=== PATIENT | female | born 1945 | race Caucasian/White ===

== ENCOUNTER 2017-03-20 03:29 | Inpatient (IN) | payer MEDICARE, MEDICAID ==
[~2017-03-20] VITALS: Ht 170.2 cm; Wt 58.6 kg
[2017-03-20] MEDS ORDERED: ZAFI20TA11 PO (03:40)
[2017-03-20] MEDS ORDERED: POTA8TAB PO (04:02)
[2017-03-20] MEDS ORDERED: ACLI400A2 INH (04:02)
[2017-03-20] MEDS ORDERED: LOSA100T6 PO (04:02)
[2017-03-20] MEDS ORDERED: ALBU1.25 NEB (04:02)
[2017-03-20] MEDS ORDERED: ATOR20TA9 PO (04:02)
[2017-03-20] MEDS ORDERED: FLUT1DIS5 IH (04:02)
[2017-03-20] MEDS ORDERED: WARF5TAB7 PO (04:02)
[2017-03-20] MEDS ORDERED: ALBU8.5H3 INH (04:02)
[2017-03-20] MEDS ORDERED: BISO1TAB PO (04:02)
[2017-03-20] MEDS ORDERED: FURO80TA3 PO (04:02)
[2017-03-20] MEDS ORDERED: LEVO125T PO (04:02)
[2017-03-20] MEDS ORDERED: ALBUTEROL SULFATE 2.5 MG/3 ML NPPB ONE (04:30)
[2017-03-20 04:51] LABS: BLOOD UREA NITROGEN 18 mg/dL (7-18)
[2017-03-20] MEDS ORDERED: MORPHINE SULFATE 4 MG/ML, 1ML ONE (04:56)
[2017-03-20] MEDS ORDERED: SODIUM CHLORIDE 0.9% 1,000 ML IV ONE (05:00)
[2017-03-20] MEDS ORDERED: ONDANSETRON 2MG/ML, 2ML IVPush PRN ×2 (05:00→08:00)
[2017-03-20] MEDS ORDERED: MORPHINE SULFATE 4 MG/ML, 1ML IVPush PRN ×2 (05:00)
[2017-03-20 06:07] VITALS: BP 137/65
[2017-03-20 06:50] VITALS: BP 110/56
[2017-03-20] MEDS ORDERED: HYDROcodone/APAP 5/325 TABLET PO PRN (08:00)
[2017-03-20] MEDS: LEVOTHYROXINE 125 MCG TABLET PO SCH (08:00)
[2017-03-20] MEDS ORDERED: methylPREDNISolone 4mg DOSE PACK PO SCH (08:00)
[2017-03-20] MEDS ORDERED: morphine SULFATE 10 MG/ML, 1ML IVPush PRN (08:00)
[2017-03-20] MEDS ORDERED: ALBUTEROL SULFATE 2.5 MG/3 ML NPPB PRN (08:00)
[2017-03-20] MEDS: GUAIFENESIN 200 MG TABLET PO SCH ×4 (08:00→21:06)
[2017-03-20] MEDS ORDERED: IPRATROPIUM 0.5 MG/2.5 ML INHA NPPB SCH (08:00)
[2017-03-20] MEDS ORDERED: AZITHROMYCIN 500 MG in SODIUM CHLORIDE 0.9% 250 ML IV SCH (08:00)
[2017-03-20] MEDS ORDERED: [UNRECOGNIZED DRUG - REMARK] XX PRN (08:00)
[2017-03-20] MEDS: FAMOTIDINE 20 MG TABLET PO SCH ×2 (09:00→21:05)
[2017-03-20] MEDS: FUROSEMIDE 40 MG/4 ML IV SCH (09:00)
[2017-03-20] MEDS: ZAFIRLUKAST 20 MG TABLET PO SCH ×2 (09:00→21:06)
[2017-03-20] MEDS: LOSARTAN 50MG TABLET PO SCH (09:00)
[2017-03-20] MEDS: HCTZ HOMEMEDPO SCH (09:00)
[2017-03-20] MEDS ORDERED: SENNA/DOCUSATE TABLET PO SCH (09:00)
[2017-03-20] MEDS: FLUTICASONE/VILANTEROL 200-25MCG/INH INH SCH ×2 (09:00→21:05)
[2017-03-20] MEDS: BISOPROLOL FUMARATE HOMEMEDPO SCH (09:00)
[2017-03-20] MEDS ORDERED: WARFARIN 5 MG TABLET PO-COUM SCH (09:00)
[2017-03-20] MEDS: POTASSIUM CHLORIDE 8 MEQ TABLET.ER PO SCH ×2 (09:00→21:06)
[2017-03-20] MEDS: [UNRECOGNIZED DRUG - OTHER] HOMEMEDPO SCH (09:00)
[2017-03-20] MEDS ORDERED: ALBUTEROL/IPRATROPIUM 2.5MG/0.5MG, 3 ML ONE (09:46)
[2017-03-20] MEDS: ALBUTEROL/IPRATROPIUM 2.5MG/0.5MG, 3 ML NPPB SCH ×3 (09:55→19:58)
[2017-03-20] MEDS: CEFTRIAXONE PMX 1GM/50ML 50 ML IV SCH ×2 (10:30→23:31)
[2017-03-20 12:19] VITALS: BP 100/51
[2017-03-20 18:58] VITALS: BP 134/71
[2017-03-20] MEDS ORDERED: ATORVASTATIN 20 MG TABLET PO SCH (21:00)
[2017-03-21 02:03] VITALS: BP 132/61
[2017-03-21 05:07] LABS: BLOOD UREA NITROGEN 18 mg/dL (7-18)
[2017-03-21] MEDS: LEVOTHYROXINE 125 MCG TABLET PO SCH (05:40)
[2017-03-21] MEDS: GUAIFENESIN 200 MG TABLET PO SCH (05:40)
[2017-03-21 06:35] VITALS: BP 140/73
[2017-03-21] MEDS: ALBUTEROL/IPRATROPIUM 2.5MG/0.5MG, 3 ML NPPB SCH ×2 (07:00→10:02)
[2017-03-21] MEDS ORDERED: FAMO20TA7 PO (07:58)
[2017-03-21] MEDS ORDERED: GUAI200T3 PO (07:58)
[2017-03-21] MEDS ORDERED: CEFD300C37 PO (07:58)
[2017-03-21] MEDS ORDERED: METH4TAB2 PO (07:58)
[2017-03-21] MEDS: FLUTICASONE/VILANTEROL 200-25MCG/INH INH SCH (08:35)
[2017-03-21] MEDS: LOSARTAN 50MG TABLET PO SCH (08:37)
[2017-03-21] MEDS: ZAFIRLUKAST 20 MG TABLET PO SCH (08:37)
[2017-03-21] MEDS: FAMOTIDINE 20 MG TABLET PO SCH (08:38)
[2017-03-21] MEDS: FUROSEMIDE 40 MG/4 ML IV SCH (08:41)
[2017-03-21] MEDS: HCTZ HOMEMEDPO SCH (08:41)
[2017-03-21] MEDS: BISOPROLOL FUMARATE HOMEMEDPO SCH (08:41)
[2017-03-21] MEDS: [UNRECOGNIZED DRUG - OTHER] HOMEMEDPO SCH (08:41)
[2017-03-21] MEDS: POTASSIUM CHLORIDE 8 MEQ TABLET.ER PO SCH (08:42)
[2017-03-21 12:19] VITALS: BP 121/70
[2017-03-21] MEDS ORDERED: WARFARIN 1 MG TABLET PO-COUM SCH (18:00)
== END 2017-03-21 14:35 | disposition home or self-care (01) | DRG 291 ==
LOC: ED 05:10 → EDIP 05:15 → 4EST 06:04
PROVIDERS: ADMIT Internal Medicine; ATTEND Internal Medicine
DX: I11.0 Hypertensive heart disease with heart failure (principal); J18.1 Lobar pneumonia, unspecified organism; E43 Unspecified severe protein-calorie malnutrition; J96.21 Acute and chronic respiratory failure with hypoxia; J44.0 Chronic obstructive pulmonary disease with (acute) lower respiratory infection; J44.1 Chronic obstructive pulmonary disease with (acute) exacerbation; I50.23 Acute on chronic systolic (congestive) heart failure; E03.9 Hypothyroidism, unspecified; Z86.711 Personal history of pulmonary embolism; Z87.01 Personal history of pneumonia (recurrent); Z99.81 Dependence on supplemental oxygen; Z88.6 Allergy status to analgesic agent; Z87.891 Personal history of nicotine dependence; Z88.8 Allergy status to other drugs, medicaments and biological substances; Z68.20 Body mass index [BMI] 20.0-20.9, adult
CPT/HCPCS: 36415; 71010; 80048; 82040; 83735; 84443; 85025; 85610; 93005; 93306; 94640; 96374; J0456; J0696; J1940; J7509; J7613; J7620; J7050

== ENCOUNTER → 2019-04-03 | Outpatient (CLI) | payer MEDICARE, MEDICAID ==
[~2019-04-03] MED LIST: ACLI400A2 INH; ALBU1.25 NEB; ALBU8.5H8 INH; ATOR20TA37 PO; BISO1TAB PO; CEFD300C37 PO; FAMO20TA7 PO; FLUT1DIS5 IH; FURO80TA3 PO; GUAI200T3 PO; LEVO125T PO; LOSA100T14 PO; METH4TAB2 PO; POTA8TAB PO; WARF-36 PO; ZAFI20TA11 PO
== END | disposition home or self-care (01) ==
LOC: SUSANVILLE 10:00
PROVIDERS: ATTEND Internal Medicine Cardiovascular Disease
DX: I08.1 Rheumatic disorders of both mitral and tricuspid valves (principal); J44.9 Chronic obstructive pulmonary disease, unspecified; I42.9 Cardiomyopathy, unspecified
CPT/HCPCS: 93306

== ENCOUNTER 2019-09-08 10:26 | Inpatient (IN) | payer MEDICARE, MEDICAID ==
[~2019-09-08] VITALS: Ht 170.2 cm; Wt 65.5 kg
[~2019-09-08 10:26] MED LIST changes: -ACLI400A2 INH; +ACLI400A3 INH; -GUAI200T3 PO; +GUAI200T37 PO
--- NOTE | 2019-09-08 10:31 | NUR ---
THIS IS A 74 YO F BIB [facility] FROM [place] WITH C/O SOB AND ELEVATED TROPONIN. RESPIRATIONS ARE LABORED WITH USE OF INTERCOSTAL MUSCLES. WHEEZING AND RHONCHI PRESENT. PATIENT IS IN NO ACUTE DISTRESS. RECEIVED ALBUTEROL TREATMENTS BY [facility] AND SENDING FACILITY. VITALS STABLE. CALL LIGHT IN REACH. WILL CONTINUE TO MONITOR.
[2019-09-08] MEDS ORDERED: SODIUM CHLORIDE FLUSH 10ML SYR IVF ONE (11:00)
[2019-09-08 11:19] LABS: ALANINE AMINOTRANSFERASE 104 U/L (12-78); ALBUMIN 3.5 g/dL (3.4-5.0); ANION GAP 5 mmol/L (5-15); CALCIUM 8.5 mg/dL (8.5-10.1); CHLORIDE 109 mmol/L (98-107); CREATININE 0.76 mg/dL (0.55-1.02)
[2019-09-08 11:23] LABS: ALKALINE PHOSPHATASE 57 U/L (45-117); BILIRUBIN,TOTAL 0.4 mg/dL (0.2-1.0); TOTAL PROTEIN 6.7 g/dL (6.4-8.2); TROPONIN I 0.023 ng/mL (0.000-0.045)
[2019-09-08 11:35] LABS: INTERNATIONAL NORMALIZED RATIO 2.22 (0.93-1.1); PROTHROMBIN TIME 22.6 Seconds (9.6-11.5)
[2019-09-08 11:48] LABS: MEAN CORPUSCULAR HEMOGLOBIN 30.4 pg (27.0-34.8); MEAN CORPUSCULAR HGB CONC 32.1 g/dL (32.4-35.8); MEAN CORPUSCULAR VOLUME 94.6 fL (80-100); RED BLOOD COUNT 3.61 x10^6/uL (3.82-5.3); RED CELL DISTRIBUTION WIDTH 15.1 % (9.6-15.2)
[2019-09-08 11:49] LABS: MEAN PLATELET VOLUME 8.1 fL (7.4-10.4); PLATELET COUNT 208 x10^3/uL (130-400)
[2019-09-08 11:50] LABS: MD YES
[2019-09-08 11:56] LABS: BAND#(MANUAL) 0.38 x10^3/uL; BANDS%(MANUAL) 3 % (0-7); LYMPH#(MANUAL) 0.13 x10^3/uL (1-3.4); LYMPHS% (MANUAL) 1 % (22-44); MONOS#(MANUAL) 0.26 x10^3/uL (0.3-2.7); MONOS% (MANUAL) 2 % (2-9); SEG#(MANUAL) 12.03 x10^3/uL (1.8-6.8); SEGS% (MANUAL) 94 % (42-75)
--- NOTE | 2019-09-08 11:56 | NUR ---
PATIENT RESTING ON GURNEY WITH SIDE RAILS UP AND CALL LIGHT IN REACH. DENIES FURTHER NEEDS AT THIS TIME.
[2019-09-08 11:57] LABS: <PLATELET ESTIMATE> ADEQUATE; <PLT MORPHOLOGY> NORMAL PLT MORPH; ANISOCYTOSIS 1+; OVALOCYTES 1+
[2019-09-08] MEDS ORDERED: PRED5TAB PO (11:59)
[2019-09-08] MEDS ORDERED: FLUT1BLS INH (12:03)
--- NOTE | 2019-09-08 12:35 | NUR ---
PATIENT ASSISTED TO COMMODE.
[2019-09-08] MEDS ORDERED: OMNIPAQUE 350 MG/ML, 100ML BOTTLE ONE (12:37)
--- NOTE | 2019-09-08 14:15 | NUR ---
MEAL TRAY SERVED TO PATIENT.
--- NOTE | 2019-09-08 15:14 | NUR ---
[facility] TELEPHONE HAND-OFF REPORT GIVEN TO VEE CALDWELL.
[2019-09-08 16:01] VITALS: BP 139/83
[2019-09-08] MEDS ORDERED: hydrALAzine 20 MG/ML, 1ML IVPush PRN (17:00)
[2019-09-08] MEDS ORDERED: ACETAMINOPHEN 325 MG TABLET PO PRN (17:00)
[2019-09-08] MEDS ORDERED: ONDANSETRON 2MG/ML, 2ML IVPush PRN (17:00)
[2019-09-08] MEDS ORDERED: ALBUTEROL SULFATE 2.5 MG/3 ML ONE (17:09)
[2019-09-08 17:31] LABS: HEMOGLOBIN A1C 5.5 % (4.2-6.3)
[2019-09-08] MEDS: FUROSEMIDE 20 MG/2 ML IV SCH (18:00)
[2019-09-08] MEDS: methylPREDNISolone SOD SUCC 125 MG/2 ML IVPush SCH ×2 (18:00→23:54)
[2019-09-08] MEDS: WARFARIN 5 MG TABLET PO-COUM SCH (18:01)
[2019-09-08] MEDS: CEFTRIAXONE PMX 1GM/50ML 50 ML IV SCH (18:46)
[2019-09-08] MEDS: ALBUTEROL SULFATE 2.5 MG/3 ML NPPB SCH ×2 (19:00→23:00)
[2019-09-08] MEDS ORDERED: METOPROLOL 1 MG/ML, 5ML ONE (19:30)
[2019-09-08] MEDS ORDERED: FUROSEMIDE 20 MG/2 ML IV ONE ×3 (19:30→20:00)
[2019-09-08] MEDS: BUDESONIDE 0.5 MG/2 ML INHA INH SCH (19:30)
[2019-09-08] MEDS ORDERED: DILTIAZEM 5 MG/ML, 5ML IVPush ONE (19:30)
[2019-09-08] MEDS: METOPROLOL TARTRATE 25 MG TABLET PO SCH (19:44)
[2019-09-08] MEDS ORDERED: MORPHINE SULFATE 4 MG/ML, 1ML ONE (19:45)
[2019-09-08] MEDS ORDERED: morphine SULFATE 10 MG/ML, 1ML IVPush ONE (20:00)
[2019-09-08] MEDS ORDERED: METOPROLOL 1 MG/ML, 5ML IVPush ONE (20:00)
[2019-09-08] MEDS: ATORVASTATIN 20 MG TABLET PO SCH (20:55)
[2019-09-08] MEDS: ZAFIRLUKAST 20 MG TABLET PO SCH (20:55)
[2019-09-08 21:00] VITALS: BP 175/90
[2019-09-09 00:53] VITALS: BP 132/80
[2019-09-09] MEDS: ALBUTEROL SULFATE 2.5 MG/3 ML NPPB SCH ×6 (02:44→22:28)
[2019-09-09 05:56] LABS: MEAN CORPUSCULAR HEMOGLOBIN 31.1 pg (27.0-34.8); MEAN CORPUSCULAR HGB CONC 32.2 g/dL (32.4-35.8); MEAN CORPUSCULAR VOLUME 96.5 fL (80-100); MEAN PLATELET VOLUME 7.8 fL (7.4-10.4); PLATELET COUNT 206 x10^3/uL (130-400); RED BLOOD COUNT 3.64 x10^6/uL (3.82-5.3); RED CELL DISTRIBUTION WIDTH 15.5 % (9.6-15.2)
[2019-09-09 06:03] LABS: ALANINE AMINOTRANSFERASE 106 U/L (12-78); ALBUMIN 3.3 g/dL (3.4-5.0); ANION GAP 4 mmol/L (5-15); CALCIUM 8.3 mg/dL (8.5-10.1); CHLORIDE 105 mmol/L (98-107); CREATININE 0.61 mg/dL (0.55-1.02)
[2019-09-09 06:13] LABS: ALKALINE PHOSPHATASE 50 U/L (45-117); BILIRUBIN,TOTAL 0.5 mg/dL (0.2-1.0); TOTAL PROTEIN 6.3 g/dL (6.4-8.2)
[2019-09-09] MEDS: methylPREDNISolone SOD SUCC 125 MG/2 ML IVPush SCH ×3 (06:19→17:24)
[2019-09-09 06:20] VITALS: BP 128/70
[2019-09-09] MEDS: LEVOTHYROXINE 125 MCG TABLET PO SCH (06:20)
[2019-09-09] MEDS: METOPROLOL TARTRATE 25 MG TABLET PO SCH ×2 (06:20→17:25)
[2019-09-09] MEDS: BUDESONIDE 0.5 MG/2 ML INHA INH SCH ×2 (07:10→19:24)
[2019-09-09] MEDS ORDERED: FUROSEMIDE 40 MG/4 ML IV SCH (07:30)
[2019-09-09 08:07] LABS: BASOPHILS % (AUTO) 0 % (0-1); EOSINOPHILS # (AUTO) 0.23 x10^3/uL (0-0.4); EOSINOPHILS % (AUTO) 2 % (1-7); LYMPHOCYTES # (AUTO) 0.36 x10^3/uL (1-3.4); LYMPHOCYTES % (AUTO) 3 % (22-44); MD SCAN; MONOCYTES # (AUTO) 0.08 x10^3/uL (0.2-0.8); MONOCYTES % (AUTO) 1 % (2-9); NEUTROPHILS # (AUTO) 13.75 x10^3/uL (1.8-6.8); NEUTROPHILS % (AUTO) 95 % (42-75)
[2019-09-09 08:21] LABS: FIO2 100 %
[2019-09-09] MEDS: FUROSEMIDE 20 MG/2 ML IV SCH ×2 (08:35→17:25)
[2019-09-09] MEDS: POTASSIUM CHLORIDE 20 MEQ TAB.ER.PRT PO SCH (08:35)
[2019-09-09] MEDS: AZITHROMYCIN 500 MG TABLET PO SCH (08:35)
[2019-09-09] MEDS: ZAFIRLUKAST 20 MG TABLET PO SCH ×2 (08:35→20:35)
[2019-09-09] MEDS ORDERED: LISINOPRIL 5 MG TABLET PO SCH (09:00)
[2019-09-09] MEDS ORDERED: LOSARTAN 50MG TABLET PO SCH ×2 (09:00)
[2019-09-09] MEDS ORDERED: SPIRONOLACTONE 25 MG TABLET PO SCH (09:00)
[2019-09-09 13:37] VITALS: BP 96/53
[2019-09-09] MEDS: CEFTRIAXONE PMX 1GM/50ML 50 ML IV SCH (17:24)
[2019-09-09] MEDS: WARFARIN 5 MG TABLET PO-COUM SCH (18:00)
[2019-09-09 18:36] LABS: INTERNATIONAL NORMALIZED RATIO 3.15 (0.93-1.1); PROTHROMBIN TIME 31.6 Seconds (9.6-11.5)
[2019-09-09 20:10] VITALS: BP 105/64
[2019-09-09] MEDS: ATORVASTATIN 20 MG TABLET PO SCH (20:35)
[2019-09-10] MEDS: methylPREDNISolone SOD SUCC 125 MG/2 ML IVPush SCH ×4 (00:35→21:37)
[2019-09-10] MEDS: ALBUTEROL SULFATE 2.5 MG/3 ML NPPB SCH ×6 (02:25→21:49)
[2019-09-10 02:44] VITALS: BP 120/80
[2019-09-10 05:46] VITALS: BP 123/72
[2019-09-10] MEDS: METOPROLOL TARTRATE 25 MG TABLET PO SCH ×2 (05:49→17:19)
[2019-09-10] MEDS: LEVOTHYROXINE 125 MCG TABLET PO SCH (05:49)
[2019-09-10 06:52] LABS: BASOPHILS % (AUTO) 0 % (0-1); EOSINOPHILS % (AUTO) 0 % (1-7); LYMPHOCYTES # (AUTO) 0.41 x10^3/uL (1-3.4); LYMPHOCYTES % (AUTO) 3 % (22-44); MD NO; MEAN CORPUSCULAR HEMOGLOBIN 31.1 pg (27.0-34.8); MEAN CORPUSCULAR HGB CONC 32.3 g/dL (32.4-35.8); MEAN CORPUSCULAR VOLUME 96.2 fL (80-100); MEAN PLATELET VOLUME 7.9 fL (7.4-10.4); MONOCYTES # (AUTO) 0.56 x10^3/uL (0.2-0.8); MONOCYTES % (AUTO) 4 % (2-9); NEUTROPHILS # (AUTO) 15.14 x10^3/uL (1.8-6.8); NEUTROPHILS % (AUTO) 94 % (42-75); PLATELET COUNT 188 x10^3/uL (130-400); RED BLOOD COUNT 3.48 x10^6/uL (3.82-5.3); RED CELL DISTRIBUTION WIDTH 15.3 % (9.6-15.2)
[2019-09-10 06:56] LABS: INTERNATIONAL NORMALIZED RATIO 4.52 (0.93-1.1); PROTHROMBIN TIME 44.8 Seconds (9.6-11.5)
[2019-09-10 07:03] LABS: CHLORIDE 102 mmol/L (98-107)
[2019-09-10 07:13] LABS: ALANINE AMINOTRANSFERASE 76 U/L (12-78); ALBUMIN 3.2 g/dL (3.4-5.0); ALKALINE PHOSPHATASE 45 U/L (45-117); ANION GAP 9 mmol/L (5-15); BILIRUBIN,TOTAL 0.5 mg/dL (0.2-1.0); CALCIUM 8.3 mg/dL (8.5-10.1); CREATININE 0.67 mg/dL (0.55-1.02)
[2019-09-10] MEDS: BUDESONIDE 0.5 MG/2 ML INHA INH SCH ×2 (07:15→18:51)
[2019-09-10 08:19] VITALS: BP 109/61
[2019-09-10] MEDS: POTASSIUM CHLORIDE 20 MEQ TAB.ER.PRT PO SCH (08:50)
[2019-09-10] MEDS: AZITHROMYCIN 500 MG TABLET PO SCH (08:50)
[2019-09-10] MEDS: ZAFIRLUKAST 20 MG TABLET PO SCH ×2 (08:50→21:37)
[2019-09-10] MEDS: FUROSEMIDE 20 MG/2 ML IV SCH ×2 (08:50→17:18)
[2019-09-10 15:40] VITALS: BP 138/75
[2019-09-10] MEDS: CEFTRIAXONE PMX 1GM/50ML 50 ML IV SCH (17:19)
[2019-09-10] MEDS ORDERED: WARFARIN 1 MG TABLET PO-COUM ONE (18:00)
[2019-09-10 21:25] VITALS: BP 108/72
[2019-09-10] MEDS: ATORVASTATIN 20 MG TABLET PO SCH (21:38)
[2019-09-11 01:59] VITALS: BP 135/55
[2019-09-11] MEDS: methylPREDNISolone SOD SUCC 125 MG/2 ML IVPush SCH ×3 (02:43→15:49)
[2019-09-11] MEDS: ALBUTEROL SULFATE 2.5 MG/3 ML NPPB SCH ×4 (03:15→10:59)
[2019-09-11] MEDS: METOPROLOL TARTRATE 25 MG TABLET PO SCH ×2 (05:32→17:52)
[2019-09-11] MEDS: LEVOTHYROXINE 125 MCG TABLET PO SCH (05:32)
[2019-09-11] MEDS: BUDESONIDE 0.5 MG/2 ML INHA INH SCH (06:19)
[2019-09-11] MEDS: FUROSEMIDE 20 MG/2 ML IV SCH ×2 (07:30→17:00)
[2019-09-11 07:37] VITALS: BP 138/83
[2019-09-11] MEDS: AZITHROMYCIN 500 MG TABLET PO SCH (08:17)
[2019-09-11] MEDS: ZAFIRLUKAST 20 MG TABLET PO SCH (08:17)
[2019-09-11] MEDS: POTASSIUM CHLORIDE 20 MEQ TAB.ER.PRT PO SCH (08:17)
[2019-09-11 08:20] LABS: MEAN CORPUSCULAR HEMOGLOBIN 30.2 pg (27.0-34.8); MEAN CORPUSCULAR HGB CONC 31.7 g/dL (32.4-35.8); MEAN CORPUSCULAR VOLUME 95.2 fL (80-100); MEAN PLATELET VOLUME 7.6 fL (7.4-10.4); PLATELET COUNT 191 x10^3/uL (130-400); RED BLOOD COUNT 3.48 x10^6/uL (3.82-5.3); RED CELL DISTRIBUTION WIDTH 15.4 % (9.6-15.2)
[2019-09-11 08:25] LABS: INTERNATIONAL NORMALIZED RATIO 2.95 (0.93-1.1); PROTHROMBIN TIME 29.7 Seconds (9.6-11.5)
[2019-09-11 08:30] LABS: ALANINE AMINOTRANSFERASE 67 U/L (12-78); ALBUMIN 3.3 g/dL (3.4-5.0); ANION GAP 5 mmol/L (5-15); CALCIUM 8.4 mg/dL (8.5-10.1); CHLORIDE 100 mmol/L (98-107); CREATININE 0.78 mg/dL (0.55-1.02)
[2019-09-11 08:34] LABS: ALKALINE PHOSPHATASE 42 U/L (45-117); BILIRUBIN,TOTAL 0.6 mg/dL (0.2-1.0); TOTAL PROTEIN 6.2 g/dL (6.4-8.2)
[2019-09-11 08:43] LABS: BASOPHILS % (AUTO) 0 % (0-1); EOSINOPHILS % (AUTO) 1 % (1-7); LYMPHOCYTES # (AUTO) 0.24 x10^3/uL (1-3.4); LYMPHOCYTES % (AUTO) 2 % (22-44); MD SCAN; MONOCYTES # (AUTO) 0.43 x10^3/uL (0.2-0.8); MONOCYTES % (AUTO) 3 % (2-9); NEUTROPHILS # (AUTO) 13.86 x10^3/uL (1.8-6.8); NEUTROPHILS % (AUTO) 95 % (42-75)
[2019-09-11 12:05] VITALS: BP 122/91
[2019-09-11] MEDS ORDERED: CEFD300C37 PO (16:54)
[2019-09-11] MEDS ORDERED: METO25TA35 PO (16:54)
[2019-09-11] MEDS ORDERED: AZIT500T10 PO (16:54)
[2019-09-11] MEDS: CEFTRIAXONE PMX 1GM/50ML 50 ML IV SCH (17:30)
[2019-09-11] MEDS ORDERED: WARFARIN 5 MG TABLET PO-COUM ONE (17:49)
[2019-09-11] MEDS ORDERED: WARFARIN 2.5 MG TABLET PO-COUM ONE (18:00)
== END 2019-09-11 18:30 | disposition home or self-care (01) | DRG 291 ==
LOC: ED 11:15 → EDIP 13:50 → 4EST 16:10
PROVIDERS: ADMIT Internal Medicine; ATTEND Internal Medicine
DX: I11.0 Hypertensive heart disease with heart failure (principal); J96.21 Acute and chronic respiratory failure with hypoxia; J18.9 Pneumonia, unspecified organism; D68.69 Other thrombophilia; I24.8 Other forms of acute ischemic heart disease; I50.43 Acute on chronic combined systolic (congestive) and diastolic (congestive) heart failure; I48.91 Unspecified atrial fibrillation; E03.9 Hypothyroidism, unspecified; F32.9 Major depressive disorder, single episode, unspecified; I25.10 Atherosclerotic heart disease of native coronary artery without angina pectoris; R73.9 Hyperglycemia, unspecified; J43.2 Centrilobular emphysema; I25.2 Old myocardial infarction; Z80.1 Family history of malignant neoplasm of trachea, bronchus and lung; Z86.711 Personal history of pulmonary embolism; Z87.891 Personal history of nicotine dependence; Z90.710 Acquired absence of both cervix and uterus; Z99.81 Dependence on supplemental oxygen; Z88.6 Allergy status to analgesic agent; Z88.1 Allergy status to other antibiotic agents; Z88.8 Allergy status to other drugs, medicaments and biological substances; Z79.899 Other long term (current) drug therapy
CPT/HCPCS: 36415; 36600; 71045; 71275; 80053; 82803; 83036; 83735; 83880; 84100; 84439; 84443; 84484; 85025; 85610; 93005; 93306; 94640; G0378; J0696; J1940; J7613; J7626; Q9967; J2270; J2930